=== PATIENT | female | born 2000 | race Caucasian/White ===

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

== ENCOUNTER 2020-08-25 06:32 | Emergency (ER) | payer SELFPAY ==
[~2020-08-25] VITALS: Ht 157.5 cm; Wt 68.0 kg
[2020-08-25 06:34] VITALS: BP 140/65
--- NOTE | 2020-08-25 06:34 | NUR ---
to bed ambulatory
--- NOTE | 2020-08-25 06:45 | NUR ---
19 YO/F BIB self w CO strong mid-epigastric acheing pain 4/10 since last night and reports when she lays back she feels something move from her mid-epigastric area to under her R lower ribs. Patient also reports she started having random episodes of dizzyness [id number] ago with blurry vision during episodes, denies LOC. Patient reports nausea x3 days, no vomiting, denies current nausea. Patient also reports she sometimes has noted small "balls of blood" in her urine x2 weeks, denies frequency, urgency, dysuria. Denies fever, diahrrea, constipation. Bowel sounds present throughout all quadrants, abdomen tender to touch. AOX4, GCS 15, PERRL, breathing even and unlabored. NAD, will continue to monitor. Patient sitting in bed, locked in lowest position, x1 siderail up. pmh: anemia nka
--- NOTE | 2020-08-25 07:10 | NUR ---
Report given to VIVIANE Shore for transfer of care at this time.
[2020-08-25] MEDS ORDERED: KETOROLAC 60 MG/2 ML VIAL IM ONE (07:15)
--- NOTE | 2020-08-25 07:25 | NUR ---
LAB AT BEDSIDE
--- NOTE | 2020-08-25 07:26 | NUR ---
Ultrasound at bedside
[2020-08-25 07:33] LABS: BASOPHILS # (AUTO) 0.1 K/uL (0.00-0.22); BASOPHILS % (AUTO) 0.6 % (0.0-2.0); EOSINOPHILS # (AUTO) 0.2 K/uL (0-0.4); EOSINOPHILS % (AUTO) 1.9 % (0.0-4.0); HEMATOCRIT 41.2 % (36-48); LYMPHOCYTES # (AUTO) 4.4 K/uL (2.5-16.5); LYMPHOCYTES % (AUTO) 42.5 % (20.5-51.1); MEAN CORPUSCULAR HEMOGLOBIN 29 pg (27-31); MEAN CORPUSCULAR HGB CONC 34 g/dL (33-37); MEAN CORPUSCULAR VOLUME 84.8 fL (80-94); MONOCYTES # (AUTO) 0.5 K/uL (0.8-1.0); MONOCYTES % (AUTO) 5.1 % (1.7-9.3); NEUTROPHILS # (AUTO) 5.2 K/uL (1.8-7.7); NEUTROPHILS % (AUTO) 49.9 % (42.2-75.2); PLATELET COUNT (AUTO) 219 K/uL (140-450); RED BLOOD CELL COUNT(AUTO) 4.86 MIL/uL (4.20-5.40); RED CELL DISTRIBUTION WIDTH 12.9 % (11.6-13.7); WHITE BLOOD COUNT (AUTO) 10.3 K/uL (4.5-11.0)
[2020-08-25 07:40] LABS: APPEARANCE,URINE CLEAR (CLEAR); BILIRUBIN,URINE NEGATIVE (NEGATIVE); BLOOD, URINE NEGATIVE (NEGATIVE); COLOR,URINE YELLOW (YELLOW); LEUKOCYTE ESTERASE ,URINE NEGATIVE (NEGATIVE); NITRITE, URINE NEGATIVE (NEGATIVE); UGLUCOSE NEGATIVE (NEGATIVE)
[2020-08-25 07:47] LABS: ALBUMIN 4.3 g/dL (3.4-5.0); ANION GAP 17.3 (8-16); CARBON DIOXIDE 22.3 mmol/L (21-32); CREATININE 0.8 mg/dL (0.6-1.3); POTASSIUM 3.6 mmol/L (3.5-5.1); TOTAL BILIRUBIN 0.3 mg/dL (0.0-1.0)
[2020-08-25] MEDS ORDERED: HYDROcodone/APAP 5/325 MG 1 TAB TAB PO ONE (08:15)
[2020-08-25] MEDS ORDERED: NAPR-54 PO (08:23)
--- NOTE | 2020-08-25 08:26 | NUR ---
Dr. Funez is reevaluating the patient at bedside.
[2020-08-25 08:30] VITALS: BP 140/65
--- NOTE | 2020-08-25 08:30 | NUR ---
Patient discharged with v/s stable. Written and verbal after care instructions given CHOLELITHIASIS AND ABDOMINAL PAIN and explained. Patient alert, oriented and verbalized understanding of instructions. Ambulatory with steady gait. All questions addressed prior to discharge. ID band removed. Patient advised to follow up with PMD. Rx of NAPROXRN 500MG PO BID PRN PAIN given. Patient educated on indication of medication including possible reaction and side effects. Opportunity to ask questions provided and answered.
== END 2020-08-25 08:29 | disposition home or self-care (01) ==
LOC: MED 06:32
DX: K80.20 Calculus of gallbladder without cholecystitis without obstruction (principal); Z79.899 Other long term (current) drug therapy
CPT/HCPCS: 36415; 76705; 80053; 81003; 81025; 83690; 85025; 96372; 99284; J1885